=== PATIENT | female | born 1960 | race Caucasian/White ===

== ENCOUNTER 2018-01-30 19:45 | Inpatient (IN) | payer MEDICAID ==
[~2018-01-30] VITALS: Ht 157.5 cm; Wt 56.2 kg
[2018-01-30] MEDS ORDERED: SODIUM CHLORIDE 0.9% 1,000 ML IV ONE (20:31)
[2018-01-30] MEDS ORDERED: KETOROLAC 30MG/ML VIAL IV STA (20:31)
[2018-01-30] MEDS ORDERED: CLONIDINE 0.2MG TABLET PO ONE (20:45)
[2018-01-30 20:52] LABS: BASOPHILS % 0.5 % (0.0-2.0); EOSINOPHILS % 2.3 % (0.0-5.0); HEMATOCRIT. 36.4 % (36.0-48.0); LYMPHOCYTES % 36.9 % (20.0-50.0); MEAN CORPUSCULAR HEMOGLOBIN 30.2 pg (28.0-32.0); MEAN CORPUSCULAR VOLUME 91.7 fL (81.0-99.0); MEAN PLATELET VOLUME 9.8 fl (7.4-10.4); MONOCYTES % 4.5 % (2.0-8.0); NEUTROPHILS % 55.8 % (40.0-76.0); PLATELET 429 x1000/uL (130-400); RED BLOOD CELL COUNT 3.97 mill/uL (4.2-5.4); RED CELL DISTRIBUTION WIDTH 13.2 % (11.6-14.6)
[2018-01-30 20:58] LABS: CHLORIDE 106 mEq/L (98-107)
[2018-01-30 21:00] LABS: PARTIAL THROMBOPLASTIN TIME 26.1 sec (23.4-31.0); PROTHROMBIN TIME 9.6 sec (9.1-11.1)
[2018-01-30] MEDS ORDERED: ASPIRIN 325MG EC TABLET PO ONE (22:45)
[2018-01-31] MEDS ORDERED: MAGNESIUM/ALUMINUM HYDROXIDE/SIMETHICONE 30ML UDC PO PRN (00:30)
[2018-01-31] MEDS ORDERED: ONDANSETRON HCL 4MG/2ML INJ IV PRN (00:30)
[2018-01-31] MEDS ORDERED: ACETAMINOPHEN 325MG TABLET PO PRN (00:30)
[2018-01-31] MEDS ORDERED: HYDROCODONE/ACETAMINOPHEN 5/325MG TABLET PO PRN (00:30)
[2018-01-31] MEDS ORDERED: DOCUSATE SODIUM 100MG CAPSULE PO PRN (00:30)
[2018-01-31] MEDS ORDERED: ASPI-1159 PO (00:41)
[2018-01-31] MEDS ORDERED: ENAL20TA PO (00:41)
[2018-01-31] MEDS ORDERED: ATOR20TA PO (00:41)
[2018-01-31] MEDS ORDERED: CARV3.1242 PO (00:41)
[2018-01-31] MEDS ORDERED: ERGO2000 PO (00:41)
[2018-01-31] MEDS ORDERED: METF-816 PO (00:41)
[2018-01-31] MEDS ORDERED: GABA-531 PO (00:41)
[2018-01-31 00:55] VITALS: BP 162/83
[2018-01-31 04:00] VITALS: BP 157/73
[2018-01-31] MEDS ORDERED: DEXTROSE 50% WATER 50ML SYRINGE IV PRN (07:30)
[2018-01-31] MEDS: BLOOD SUGAR DIAGNOSTIC STRIP TEST SCH ×4 (07:40→20:58)
[2018-01-31 08:00] VITALS: BP 177/99
[2018-01-31] MEDS: ASPIRIN 81MG EC TABLET PO SCH (08:28)
[2018-01-31] MEDS: AMLODIPINE 10MG TABLET PO SCH (08:28)
[2018-01-31] MEDS: CLONIDINE 0.1MG TABLET PO PRN (08:28)
[2018-01-31] MEDS: INSULIN LISPRO 100 UNITS/ML SUBCUT SCH ×4 (08:30→21:05)
[2018-01-31 09:30] VITALS: BP 159/85
[2018-01-31 12:00] VITALS: BP 128/68
[2018-01-31] MEDS: LOSARTAN POTASSIUM 50 MG TABLET PO SCH (12:25)
[2018-01-31 14:13] LABS: CREATINE KINASE 54 IU/L (26-192); CREATINE KINASE MB FRACTION < 1.0 ng/mL (0.5-3.6)
[2018-01-31 16:00] VITALS: BP 133/66
[2018-01-31 16:24] LABS: CREATINE KINASE 48 IU/L (26-192)
[2018-01-31 16:25] LABS: CREATINE KINASE MB FRACTION < 1.0 ng/mL (0.5-3.6)
[2018-01-31 18:49] LABS: CLARITY URINE CLOUDY (CLEAR); COLOR URINE YELLOW (YELLOW); KETONES URINE NEGATIVE (NEGATIVE); LEUKOCYTE ESTERASE URINE 2+ (NEGATIVE); NITRITE URINE POSITIVE (NEGATIVE); OCCULT BLOOD URINE NEGATIVE (NEGATIVE); PROTEIN URINE NEGATIVE (NEGATIVE); SPECIFIC GRAVITY URINE 1.015 (1.005-1.030); UROBILINOGEN URINE 0.2 E.U./dL (0.2-1.0)
[2018-02-01] VITALS (8 sets, daily range): BP systolic 108–177; BP diastolic 65–86
[2018-02-01] MEDS: BLOOD SUGAR DIAGNOSTIC STRIP TEST SCH ×4 (07:16→21:42)
[2018-02-01 07:21] LABS: BASOPHILS % 1.1 % (0.0-2.0); EOSINOPHILS % 1.9 % (0.0-5.0); HEMATOCRIT. 34.4 % (36.0-48.0); HEMOGLOBIN. 11.7 g/dL (12.0-16.0); LYMPHOCYTES % 30.6 % (20.0-50.0); MEAN CORPUSCULAR HEMOGLOBIN 31.1 pg (28.0-32.0); MEAN CORPUSCULAR VOLUME 91.6 fL (81.0-99.0); MEAN PLATELET VOLUME 9.6 fl (7.4-10.4); MONOCYTES % 3.7 % (2.0-8.0); NEUTROPHILS % 62.7 % (40.0-76.0); PLATELET 366 x1000/uL (130-400); RED BLOOD CELL COUNT 3.75 mill/uL (4.2-5.4); RED CELL DISTRIBUTION WIDTH 12.9 % (11.6-14.6)
[2018-02-01 08:09] LABS: CHLORIDE 107 mEq/L (98-107)
[2018-02-01] MEDS: ASPIRIN 81MG EC TABLET PO SCH (08:11)
[2018-02-01] MEDS: LOSARTAN POTASSIUM 50 MG TABLET PO SCH (08:11)
[2018-02-01] MEDS: CLONIDINE 0.1MG TABLET PO PRN ×2 (08:12→20:18)
[2018-02-01] MEDS: AMLODIPINE 10MG TABLET PO SCH (08:12)
[2018-02-01] MEDS: INSULIN LISPRO 100 UNITS/ML SUBCUT SCH ×4 (08:15→21:46)
[2018-02-01 08:25] LABS: HDL CHOLESTEROL 57 mg/dL (40-59); LDL CHOLESTEROL 95 mg/dL (5-100)
[2018-02-01] MEDS: LEVOFLOXACIN 500MG PREMIX 100 ML IV SCH (12:10)
[2018-02-02] VITALS: BP 135/68
[2018-02-02 04:00] VITALS: BP 156/82
[2018-02-02] MEDS: BLOOD SUGAR DIAGNOSTIC STRIP TEST SCH ×2 (05:32→11:42)
[2018-02-02 08:02] VITALS: BP_SYST 104; BP_SYST 131; BP_SYST 175; BP_DIAS 60; BP_DIAS 74; BP_DIAS 86
[2018-02-02] MEDS: INSULIN LISPRO 100 UNITS/ML SUBCUT SCH ×2 (08:02→13:10)
[2018-02-02] MEDS: AMLODIPINE 10MG TABLET PO SCH (08:49)
[2018-02-02] MEDS: ASPIRIN 81MG EC TABLET PO SCH (08:49)
[2018-02-02] MEDS: LOSARTAN POTASSIUM 50 MG TABLET PO SCH (08:49)
[2018-02-02 11:13] VITALS: BP 133/73
[2018-02-02 11:27] VITALS: BP 133/73
[2018-02-02] MEDS: LEVOFLOXACIN 500MG PREMIX 100 ML IV SCH (11:41)
== END 2018-02-02 13:30 | disposition home or self-care (01) | DRG 199 ==
LOC: ER 19:45 → EDBEDREQTM 22:54 → EDBEDREQ 22:54 → ENRESERV 23:36 → 7WST 23:57 → EDBD 23:57 → SUPCPDRO 01-31 00:23
PROVIDERS: ADMIT Hospitalist; ATTEND Hospitalist
DX: I16.0 Hypertensive urgency (principal); G90.8 Other disorders of autonomic nervous system; E86.0 Dehydration; H54.7 Unspecified visual loss; I10 Essential (primary) hypertension; N39.0 Urinary tract infection, site not specified; R73.9 Hyperglycemia, unspecified
CPT/HCPCS: 36415; 71045; 80061; 82550; 82553; 82962; 83036; 83880; 84484; 87077; 87186; 93005; 93306; 93970; 96361; 96374; 99285; J1815; J1885; J1956; J7030; J7050